=== PATIENT | female | born 1995 | race Caucasian/White ===

== ENCOUNTER 2024-08-13 13:55 | Outpatient (CLI) | payer OTHER, SELFPAY ==
--- NOTE | ~2024-08-13 | US_ITS ---
US pelvic complete w TV Ordering provider: Andrea Wetzel, [employer] History: . PELVIC PAIN . Comparison: None. Technique: Transabdominal and endovaginal ultrasound of the pelvis (Doppler ultrasound interrogation techniques used as needed for this exam.) FINDINGS: CERVIX: Normal. UTERUS: Measures 7.7 x4.7 x3.8. cm in length which is within normal limits and is anteverted. No bhavani metrial masses. IUD is seen in the endometrial cavity. ENDOMETRIUM: Normal in thickness measuring 6.5 mm. (Note: the premenopausal endometrium may measure u p to 16 mm when in the secretory phase.) No endometrial masses, cysts or fluid. CUL DE SAC: No free fluid. RIGHT OVARY: Normal in size measuring 3.2 x 2.7 x 2.3 cm. Normal echotexture. Doppler vascular flow p resent. LEFT OVARY: Normal in size measuring 2 x 2.4 x 2.8 cm. Normal echotexture. Doppler vascular flow pres ent. ADNEXA: Normal. No mass. IMPRESSION: normal pelvic ultrasound. Reviewed, dictated and finalized at location A. IMPRESSION: normal pelvic ultrasound.
--- OUTSIDE RECORDS SUMMARY | 2024-08-13 14:18 | XMS_ITS | Clinical Summary ---
Author Organization [facility] Address [address] [place] [id number] Care Team Providers Care Stitchdowns Toe Former Name Role Phone Xavi Redding MD Primary Care Provider [phone] Allergies Active Allergy Reactions Criticality Noted Date Comments Sulfamethoxazole-Trimethoprim Hives Low 2019 Codeine Hives High 06/02/2021 Gabapentin Hives High 08/20/2019 Sulfa Antibiotics Hives Low 08/20/2019 Medications vitamin D3, cholecalciferol, 10 mcg tablet Take 1 tablet (10 mcg total) by mouth daily. Active Active Problems Problem Noted Date Diagnosed Date Dichorionic diamniotic twin gestation (HHS/HCC) 10/11/2023 ([facility]) 07/31/2023 Family History Medical History Relation Comments Diabetes Father Heart Disease Mother Thyroid Disease Mother Relation Status Comments Father Alive Mother Alive Social History Tobacco Use Types Packs/Day Years Used Date Smoking Tobacco: Former Cigarettes Smokeless Tobacco: Never Tobacco Cessation:Counseling Given: Not Answered Alcohol Use Standard Drinks/Week Comments Not Currently 0 (1 standard drink = 0.6 oz pur e alcohol) B1300 Health Literacy Answer Date Recor ded How often do you need to hav e someone help you when you read instructions, pamphlets, or other written material from your doctor or pharmacy? Never 10/11/2023 [facility] Utilities Answer Date Recorded In the past 12 months has th e electric, gas, oil, or water company threatened to shut off services in your home? No 10/11/2023 Humiliation, Afraid, Rape, and Kick questionnair e Answer Date Recorded Within the last year, have y ou been afraid of your partner or ex-partner? No 10/11/2023 Within the last year, have y ou been humiliated or emotionally abused in other ways by your partner or ex-partner? No Within the last year, have y ou been kicked, hit, slapped, or otherwise physically hurt by your partner or ex-partner? No 10/11/2023 Within the last year, have y ou been raped or forced to have any kind of sexual activity by your partner or ex-partner? No 10/11/2023 Social Connection and Isolat ion Panel [NHANES] Answer Date Recorded In a typical week, how many times do you talk on the phone with family, friends, or neighbors? More than three times a week 10/11/2023 How often do you get togethe r with friends or relatives? More than three times a week 10/11/2023 How often do you attend chur or cheondoism services? Never 10/11/2023 Do you belong to any clubs o r organizations such as advent groups, unions, fraternal or athletic groups, or school groups? No 10/11/2023 How often do you attend meet ings of the clubs or organizations you belong to? Never 10/11/2023 Are you , , di vorced, , never , or living with a partner? Living with partner 10/11/2023 Overall Financial Resource Strain (CARDIA) Answe r Date Recorded How hard is it for you to pa y for the very basics like food, housing, medical care, and heating? Not hard at all 10/11/2023 PHQ-2 Answer Date Recorded Patient Health Questionnaire-2 Score 0 10/11/2023 [facility] - Occupational Stress Questionnaire Answer Date Recorded Do you feel stress - tense, restless, nervous, or anxious, or unable to sleep at night because your mind is troubled all the time - these days? Not at all 10/11/2023 Hunger Vital Sign Answer Date Recorded Within the past 12 months, y ou worried that your food would run out before you got the money to buy more. Never true 10/11/19 24 Within the past 12 months, t he food you bought just didn't last and you didn't have money to get more. Never true 10/11/2023 PRAPARE - Transportation Answer Date Re corded In the past 12 months, has l ack of transportation kept you from medical appointments or from getting medications? No 09/15 In the past 12 months, has l ack of transportation kept you from meetings, work, or from getting things needed for daily living? No 10/11/2023 Housing Stability Vital Sign Answer Darryn e Recorded In the last 12 months, was t here a time when you were not able to pay the mortgage or rent on time? No 10/11/2023 In the past 12 months, how m any times have you moved where you were living? 1 10/11/2023 At any time in the past 12 m [facility], were you homeless or living in a assisted (including now)? No 10/11/2023 Depression Answer Date Recor ded Last EPDS Total Score 1 10/13/2023 Last EPDS Self Harm Result Hardly ever 10/12 Comments No Sex and Gender Information Value Date Recorded Sex Assigned at Female 09/19/2023 3:04 PM CDT Legal Sex Female 10:59 PM ADOPTION AGENT Gender Identity Female 09/19/2023 3:04 PM CDT Sexual Orientation Not on file Last Filed Vital Signs Vital Sign Reading Time Taken Comments Blood Pressure 130/76 10/14/2023 3:53 AM CDT Pulse 55 10/14/2023 3:53 AM CDT Temperature 35.8 C (96.4 F) 10/14/2023 3:53 AM CDT Respiratory Rate 18 10/13/2023 8:26 PM CDT Oxygen Saturation 96% 10/14/2023 3:53 AM CDT Inhaled Oxygen Concentration - - Weight 95.3 kg (210 lb) 10/11/2023 3:00 PM CDT Height 177.8 cm (5' 10) 10/11/2023 3:00 PM CDT Body Mass Index 30.13 10/11/2023 3:00 PM CDT Plan of Treatment Health Maintenance Due Date Last Done Comments Cervical Cancer Screening Pap Smear (Age 21 to 29) Every 3 Years 1996 Cervical Cancer Screening 1996 Annual Physical 06/04/1999 COVID-19 Vaccine (2023- season) 2023 DTaP, Tdap and Td Vaccines (8 - Td or Tdap) 09/01/2033 09/02/2023, 06/25/2010, 09/11/2001, Additional history exists Hepatitis B Vaccines Completed 03/09/1999, 1996, 1996 Meningococcal Vaccine Aged Out 06/25/2010 No isidoro leonor eligible based on patient's age to complete this topic HPV Vaccines Completed 09/04/2011, 11/14, 10/03/2010 Hepatitis C Completed 03/28/2023 Meningococcal B Vaccine Aged Out No l onger eligible based on patient's age to complete this topic Pneumococcal Vaccine: Pediatrics (0 to 5 Years) and At-Risk Patients (6 to 49 Years) Aged Out No longer eligible based on patient's age to complete this topic RSV Immunizations Under 20 Months Aged Out No longer eligible based on patient's age to complete this topic Procedures Procedure Name Priority Date/Time Associated Diagnosis Comments HEPATITIS C ANTIBODY Routine 03/28/2023 from Last 3 Months or Most Recently Relevant to Health Maintenance Results * HEPATITIS C ANTIBODY (03/28/2023) HEPATITIS C AB Negative us Default History Genericprovider LABORATORY Final Result from Last 3 Months or Most Recently Relevant to Health Maintenance Insurance [employer] Advance Directives * Full Code (Latest Code Status on File) Date Activated Date Inactivated Comments 10/11/2023 5:30 PM 10/14/2023 3:02 PM Care Teams Stitchdowns Toe Former Relationship Specialty Start Date End Date Xavi Redding MD [address] [place] [phone] PCP - General FAMILY PRACTICE 04/18/20
--- OUTSIDE RECORDS SUMMARY | 2024-08-13 14:18 | XMS_ITS | Continuity of Care Document ---
Author Organization [facility] Address [address] [place] [address] Phone Care Team Providers Care Vocational Teacher Name Role Phone Jake Temitope JANG Unavailable Unavailable Allergies, Adverse Reactions, Alerts Substance Reaction Status Criticality trimethoprim Active No Information sulfamethoxazole Active No Informat ion codeine rash, fever(moderate) Active No Inf ormation Sulfa (Sulfonamide Antibiotics) Active No Information Medications Medication Instructions Dosage Effective Dates (start - stop) Status Comments Vitamin D3 25 mcg (1,000 unit) tablet - Active Augmentin 875 mg-125 mg tablet take 1 tablet by oral route every 12 hours - No Longer Active Depo-Provera 150 mg/mL intramuscular suspension inject 1 milliliter by intramuscular route every 3 months 150 MG - No Longer Active bupropion HCl 100 mg tablet take 1 tablet by oral route 2 times every day 100 MG - No Longer Active fludrocortisone 0.1 mg tablet take 2 tablet by oral route every day 0.2 MG - No Longer Active Procedures Procedure Date OFFICE/OUTPATIENT VISIT, EST IMMUNOTHERAPY, ONE INJECTION OFFICE/OUTPATIENT VISIT, EST OFFICE/OUTPATIENT VISIT, EST OFFICE/OUTPATIENT VISIT, EST OFFICE/OUTPATIENT VISIT, EST URINALYSIS NONAUTO W/O SCOPE OFFICE/OUTPATIENT VISIT, EST OFFICE/OUTPATIENT VISIT, EST Advance Directives Directive Yes / No Effective Date File Name No Information Encounters Encounter Description Practice Location Reason(s) For Visit Diagnoses Date Provider Providers Copied on Encounter [facility], [address] [place] [address], [facility], tel:[phone] Yuliya No Information 1 Jake Linn. [address] [place] [address]. tel:[phone] OFFICE/OUTPA TIENT VISIT, [facility], [address] [place] [address], [address] [place] [address] tel:[phone] [place] UTI (chief complaint) DysuriaInterst itial cystitis without hematuria 1 Wen Sung. [address] [place] [address], [address] [place] [address]. tel:[phone] [facility], [address] [place] [address] tel:[phone] Yuliya INJECTION (chief complaint) Encounter for surveillance of contraceptives , unspecified 9 Vinod Mullins. [address] [place] [address]. tel:[phone] OFFICE/OUTPA TIENT VISIT, [facility], [address] [place] [address], [facility], tel:[phone] Yuliya SORE THROAT (chief complaint) Pharyngitis 8 Toni Garcia. [address] [place] [address], [facility], . tel:[phone] OFFICE/OUTPA TIENT VISIT, [facility], [address] [place] [address], [facility], tel:[phone] Yuliya Sore throat (chief complaint) Upper respiratory infection 8 Bartolo Lui. [address] [place] [address], [address] [place] [address]. tel:[phone] OFFICE/OUTPA TIENT VISIT, [facility], [address] [place] [address], [facility], tel:[phone] [place] CYST R EAR (chief complaint) Cellulitis of right ear 7 Dee Abbott. [address] [place], [address], [place]. tel:[phone] OFFICE/OUTPA TIENT VISIT, [facility], [address] [place] [address], [facility], tel:[phone] [place] SORE THROAT (chief complaint) Acute maxillary sinusitis, unspecified 6 Longmeyer Brittany. [address] [place] [address], [place]. tel:[phone] OFFICE/OUTPA TIENT VISIT, [facility], [address] [place] [address], [facility], tel:[phone] [place] UTI (chief complaint) Heartburn (chief complaint) Infection, urinary tract NOSGERD 4 Bartolo Snaia. [address] [place] [address], [facility], . tel:[phone] OFFICE/OUTPA TIENT VISIT, [facility], [address] [place] [address], [facility], tel:[phone] [place] rash (chief complaint) Rash No Information Family History Family Member Type Diagnosis Age At Onset Father Problem (finding) diabetes melli tus in first degree relative Payers Payer name Insurance type Covered republican ID Authoriza tion(s) No Information Social History Type Description Quantity Date Captured Comments Alcohol Use Details Unknown Caffeine Use Details Unknown Tobacco Use Status No Information Smoking Status No Information Sex Female Chief Complaint And Reason For Visit No Information Reason For Referral Reason For Referral No Information Plan Of Treatment Date Type Action Status Goal HPV (1st). Due on due Goal Td vaccine. Due on due Goal PAP. Due on due Goal Tdap. Due on due Goal Influenza vaccine. Due on due Goal Depression scree akash. Due on due Goal Influenza vaccine. Due on No due Goal Depression scree akash. Due on due Goal Td vaccine. Due on 21 due Goal HPV (). Due on due Goal Tdap. Due on due Goal PAP. Due on due Goal HPV (). Due on 9 due Goal Td vaccine. Due on 19 due Goal Influenza vaccine. Due on due Goal Depression scree akash. Due on due Goal Tdap. Due on due Goal PAP. Due on due Goal Depression scree akash. Due on due Goal Influenza vaccine. Due on due Goal Td vaccine. Due on 18 due Goal HPV (1st). Due on 8 due Goal Tdap. Due on due Goal PAP. Due on due Goal Depression scree akash. Due on due Goal Influenza vaccine. Due on due Goal Td vaccine. Due on 18 due Goal HPV (1st). Due on 8 due Goal Tdap. Due on due Goal PAP. Due on due Patient Education Interstitial Cystitis IC PBS Me~ completed Future Order: Lab Order HCG URIN E ([id number]), Ordered on: Ordered Future Order: Lab Order URINALYS IS WITH REFLEX CULTURE ([id number]), Ordered on: Ordered History Of Present Illness Encounter Date Complaint History Of Prese nt Illness UTI Onset: 2 Days. P resenting/Initial symptoms include dysuria, frequency, lower back pain and urgency. Associated symptoms include dysuria, frequency, hesitancy, pressure and urgency. Pertinent negatives include abdominal pain, fatigue, fever, flank pain, hematuria, nausea, nocturia, pelvic pain, rash, retention, vaginal discharge or vomiting. UTI (comments) Patient has a hi story of interstitial cystitis and has been off of her medications for over a year, trying to conceive. She denies the possibility of STI. Denies hematuria today. She has not followed up with her urologist in over a year. PCP Dr. Redding. She receives routine manager print care. INJECTION PT PRESENTS FOR DEPO CONTROL INJECTION - INJECITON GIVEN IN LEFT BUTTOCKS WITHOUT INCIDENT OR COMPLAINT . PT IS ON SCHEDULE SORE THROAT Onset: 2 Days. T he severity of the problem is mild. The problem has worsened. Symptoms are associated with exposure to strep and recent cold. Symptoms are not associated with dental infection, history of allergies, history of asthma, recent travel, sick family member and smoker. Associated symptoms include chills/rigors, cough, fatigue, nasal congestion, pharyngitis, postnasal drainage and sinus pressure. Pertinent negatives include dyspnea, facial pain, fever, headache, hemoptysis, myalgia, otalgia, rash, rhinitis, sputum, tooth pain or wheezing. Sore throat Onset: 3 Days. S ymptoms are associated with history of allergies. Symptoms are not associated with sick family member. The patient denies aggravating factors. The patient denies relieving factors. Associated symptoms include dyspnea, fatigue, fever, nasal congestion, postnasal drainage, sinus pressure and wheezing. Pertinent negatives include chills/rigors. Additional information: PT states that her max fever was 99F. PT states she took 4 Tylenol today at about 7AM. CYST R EAR Pt presents toda y with c/o right ear pain, swelling, draniage, and bleeding. She had it pierced on 06/03/16 and appx 1 week ago it became infected. She has removed the ring. SORE THROAT Onset: 10 Days. The severity of the problem is moderate. The problem has worsened. The symptoms are persistent. Symptoms are associated with history of allergies and history of asthma. Symptoms are not associated with exposure to strep, sick family member and smoker. The patient denies aggravating factors. The patient denies relieving factors. Associated symptoms include cough (productive with green sputum), fatigue, fever, nasal congestion, otalgia, pharyngitis, postnasal drainage and sinus pressure. Pertinent negatives include chills/rigors, headache, myalgia, rash or tooth pain. UTI Onset: 1 Week. P resenting/Initial symptoms include abdominal pain, frequency and lower back pain. Aggravating factors include urination. Symptoms are not aggravated by baths or sexual activity. Denies relieving factors. Associated symptoms include dysuria and frequency. Pertinent negatives include fatigue, fever, nausea, rash, vaginal discharge or vomiting. Heartburn Onset: 6 Months. The severity of the problem is moderate. The problem has not changed. The symptoms are recurring. The location is epigastric. The quality of the pain is burning. These symptoms occur NSAID use. Symptoms are relieved by OTC meds. Associated symptoms include back pain and heartburn. Pertinent negatives include bloating, blood in stool, fever, nausea, rash, vaginal discharge and vomiting.Additional information:Chronic, off and on. While on Nexium (14 days) went away but came right back). rash The patient pres ents for rash. This episode began 10 days ago and has lasted 10 Days. The symptom(s) are described as moderate, unchanged and occurs continuously. Additional information: Patient has had the rash for about 10 days and complains of tit itching and feels very hot to touch. It gets better and then gets worse again. Functional Status Date Functional Assessmen t No Information Instructions Date Instruction Additional Infor chante Your urine will be s ent to the lab for further analysis. We will call your with the results. If you have no infection, it is strongly recommended that you follow-up with your urologist for further recommendations on treatment. In the meantime, drink plenty of fluids and take tylenol or ibuprofen for temporary relief of your symptoms. Follow-up at this office or with your primary care provider for continued or worsening symptoms. Related to Dysuria Observe for worsening s/s Relate d to Pharyngitis Discard toothbrush in 2 days Rel ated to Pharyngitis Tylenol/ Motrin as n eeded for fever/discomfort Related to Pharyngitis Medications as discussed Related to Pharyngitis Recommend gargling Related to Ph aryngitis Over the counter med ication for symptoms, Mucinex DM for cough and mucous, Throat lozenges for sore throat symptomsTylenol for headache or bodyaches Related to Upper respiratory infection Increase fluids. Related to Uppe r respiratory infection Cover cough. Good hand hygiene. Related to Upper respiratory infection Educated that antibi otics are not prescribed for viral infections. Related to Upper respiratory infection Wash area with warm, soapy water BID. Related to Cellulitis of right ear Call office with any acute shakira rns. Related to Cellulitis of right ear Observe for worsening s/s. Relat ed to Cellulitis of right ear Take medication as directed. Rel ated to Cellulitis of right ear Patient instructed o n use of saline sprays. Related to Acute maxillary sinusitis, unspecified Instructions given f or sinus irrigation. Related to Acute maxillary sinusitis, unspecified After finished with antibiotic start Ranitidine 75mg BID can increase to 150mg BID if not helping after 1 weekUse for 3-4 weeks then try to go off of itTry not to use NSAIDs and take with food if you need to take itFollow up in 4-6 weeks if no improvement Related to GERD Finish all antibiotics Related t o Infection, urinary tract NOS Increase fluids, jennifer ecially water, avoid sugary drinks Related to Infection, urinary tract NOS Elevate head of bed prior to sle ep Related to GERD Eat smaller meals, n o eating three hours prior to bedtime Related to GERD Avoid provocative fo ods: citrus, alcohol, coffee, chocolate, mints Related to GERD avoid florentin silver jewelry Re lated to Rash Zyrtec OTC Related to Rash Cortisone cream Related to Rash Assessments Type Assessment Date No Information Patient Care Teams Name Effective Dates (start - stop) Status Members No Information
--- OUTSIDE RECORDS SUMMARY | 2024-08-13 14:19 | XMS_ITS | Data Portability ---
Author Organization [facility], [address] [facility] ([place]) Address [address] 4th [place] [address] Care Team Providers Care Engraving Plate Maker Name Role Phone BRANDON UNGER Primary Care Provider PHILLIP ANTON Insulation Worker DORIS WATKINS Hand Brush Filler Assessment Encounter Date Assessment Date Assessment LastModified by Organization Details LastModified Time 10/21/2023 10/21/2023 Blood pressures are normal. The patient is overall doing well at home. She is taking Colace, vitamin and vitamin D. Bleeding precautions were given. The patient is aware that she can use as a support for her needs with pumping for the twins. She will continue to monitor her blood pressures at home and will return for her scheduled visit. Her EPDS was 6. [email or web address] Not available 11/01/2023 10:50:39 Plan of Treatment Reminders Order Date Submit Date Provider Last Modified By Organization Details Last Modified Time Details Appointments Establish ed Patient 10.EST 2024 09:00A M Dr. Phillip Anton Not available Not available Not available Annual Well Woman Visit 15.EST 2024 01:00P M Dr. Doris Watkins Not available Not available Not available Lab urinalysi s, dipstick 2023 024 [id number] [address] [facility] [address], [place], [address], 10/13/2023 10:05:55 urinalysi s, dipstick 2023 024 [id number] [facility] [address], [place], [address], 10/07/2023 18:01:12 Referral None recorded. Procedures None recorded. Surgeries None recorded. Imaging US, obstetric , biophysic al profile 2023 024 [facility], [address] [place] [address], [id number], 10/13/2023 10:05:55 US, obstetric , limited 2023 024 [email or web address] [facility], [address] [place] [address], [id number], 10/13/2023 10:05:55 Medication Orders norethind caitlin (contrace ptive) 0.35 mg tablet 2023 024 [email or web address] [facility], [address] [facility] [place] [address], [place], [address], 11/26/2023 18:11:34 Patient TargetsNo targets recorded. Patient InstructionsNo instructions recorded. Reason for Referral None Reported. Results Created Date Observation Date Name Description Value Unit Range Abnormal Flag Note LastModifiedBy Organization Detail LastModifiedTime 09/08/1909/08/2023 urina lysis , dipst ick manual urine dipstick pH value s of 5 or 9 indic ates a value <=5 or >=9. Speci fic gravi ty value of 1.005 indic ates a value of <=1.0 05 Speci fic gravi ty value of 1.030 indic ates a value of >=1.0 30 Not Available [facility] [address] [place] [address], [id number], 09/08/2023 13:13:46 09/08/19 24 09/08/2023 urina lysis , dipst ick color YELLO Not Available [facility] [address] [place] [address], [id number], 09/08/2023 13:13:46 09/08/19 24 09/08/2023 urina lysis , dipst ick appearance CLEAR Not Available [facility] [address] [place] [address], [id number], 09/08/2023 13:13:46 09/08/19 24 09/08/2023 urina lysis , dipst ick sp gravity 1.010 1.005- 1.030 Not Available [facility] [address] [place] [address], [id number], 09/08/2023 13:13:46 09/08/19 24 09/08/2023 urina lysis , dipst ick pH 7.0 5.0-7. 5 Not Available [facility] [address] [place] [address], [id number], 09/08/2023 13:13:46 09/08/19 24 09/08/2023 urina lysis , dipst ick protein NEG negati ve Not Available [facility] [address] [place] [address], [id number], 09/08/2023 13:13:46 09/08/19 24 09/08/2023 urina lysis , dipst ick glucose NEG negati ve Not Available [facility] [address] [place] [address], [id number], 09/08/2023 13:13:46 09/08/19 24 09/08/2023 urina lysis , dipst ick ketone NEG negati ve Not Available [facility] [address] [place] [address], [id number], 09/08/2023 13:13:46 09/08/19 24 09/08/2023 urina lysis , dipst ick bilirub NEG negati ve Not Available [facility] [address] [place] [address], [address], 09/08/2023 13:13:46 09/08/19 24 09/08/2023 urina lysis , dipst ick blood 2+ negati ve abnormal Not Available [facility] [address] [place] [address], [address], 09/08/2023 13:13:46 09/08/19 24 09/08/2023 urina lysis , dipst ick urobil NEG <=1.0 Not Available [facility] [address] [place] [address], [address], 09/08/2023 13:13:46 09/08/19 24 09/08/2023 urina lysis , dipst ick nitrite NEG negati ve Not Available [facility] [address] [place] [address], [id number], 09/08/2023 13:13:46 09/08/19 24 09/08/2023 urina lysis , dipst ick leuk 3+ negati ve abnormal Not Available [facility] [address] [place] [address], [id number], 09/08/2023 13:13:46 09/08/19 24 09/10/2023 cultu re + sensi tivit y, urine urine culture and sens. LOREN L URINE ESCHE JUDSON A COLI DATE/ TIME: 09/09 10:04 >100, 000 CFU/m L Antib iotic Name EARLENE mcg/m l Ampic illin <=8 S Amoxi cilli n/K Clavu lanat e <=8/4 S Cefaz fang <=2 S Cipro floxa anh <=1 S Cefur oxime <=4 S Nitro furan toin <=32 S Trime thopr im/Cameron lfmet hoxaz <=2/3 8 S S=Jewels cepti ble R=Res istan t I=Int ermed iate IB=Sp ecies poten tiall y may becom e resis tant to all B-lac farris drugs . Patie nt monit oring recom lazara d. Avoid other /comb ined B-lac farris drugs . ESB=E xtend ed spect rum Beta- lacta jai (ESBL ) R*=Pr edict ed resis tant inter preta tion Not Available [facility] [address] [place] [address], [id number], 09/10/2023 11:05:23 09/08/19 24 09/09/2023 cultu re + sensi tivit y, urine urine culture and sens. PREL IM URINE GRAM NEGAT NINI RODS DATE/ TIME: 09/08 08:59 >100, 000 CFU/m L Not Available [facility] [address], [address], 09/09/2023 10:00:34 09/13/19 24 09/13/2023 urina lysis , dipst ick Protein Negati ve Not Available [address] [facility] [facility] [address] [place] [address], [phone], 09/12/2023 16:26:03 09/13/19 24 09/13/2023 urina lysis , dipst ick Glucose Negati ve Not Available [address] [facility] [address] [place] [address], [address], 09/12/2023 16:26:03 09/16/19 24 09/16/2023 urina lysis , dipst ick Protein Trace Not Available [address] master assistant ([place] [address] [place] [address], [address], 09/16/2023 17:17:16 09/16/19 24 09/16/2023 urina lysis , dipst ick Glucose Negati ve Not Available [address] [facility] [address] [place] [address], [address], 09/16/2023 17:17:16 09/21/19 24 09/21/2023 urina lysis , dipst ick Protein Trace Not Available [address] [facility] [address] [facility] [address] [place] [address] 2, [place], [address], 09/21/2023 13:17:24 09/21/19 24 09/21/2023 urina lysis , dipst ick Glucose Negati ve Not Available [address] [facility] [facility] [address] [place] [address] 2, [place], [address], 09/21/2023 13:17:24 09/23/19 24 09/24/2023 prote in, total , 24-ho ur urine total protein, 24 HR ur Not Available [facility] [address] [place] [address], [id number], 09/24/2023 09:39:37 09/23/19 24 09/24/2023 prote in, total , 24-ho ur urine creatinine, 24 hour urine 1324 mg/24 _HR 800-18 00 Not Available [facility] [address] [place] [address], [id number], 09/24/2023 09:39:37 09/23/19 24 09/24/2023 prote in, total , 24-ho ur urine protein/crea tinine ratio 191 0-200 Not Available [facility] [address] [place] [address], [address], 09/24/2023 09:39:37 09/23/19 24 09/24/2023 prote in, total , 24-ho ur urine protein, total 24 HR ur. 253 mg/24 _HR 30-150 high Not Available [facility] [address] [place] [address], [address], 09/24/2023 09:39:37 09/23/19 24 09/24/2023 creat incathy padilla creatinine, random urine 31.9 mg/dL not estab. Not Available [facility] [address] [place] [address], [address], 09/24/2023 12:00:19 09/23/19 24 09/24/2023 prote in, tot;r andom protein, tot;random 6.1 mg/dL not estab. Not Available [facility] [address] [place] [address], [address], 09/24/2023 12:00:20 09/28/19 24 09/28/2023 urina lysis , dipst ick Protein Negati ve Not Available [address] [facility] [address] [place] [address], [address], 09/28/2023 09:03:13 09/28/19 24 09/28/2023 urina lysis , dipst ick Glucose Negati ve Not Available [address] [facility] [facility] [address] [place] [address], [place], [address], 09/28/2023 09:03:13 09/28/19 24 09/28/2023 urina lysis , dipst ick Nitrate Negati ve Not Available [address] [facility] [address] [place] [address], [place], [address], 09/28/2023 09:03:13 09/28/19 24 09/28/2023 urina lysis , dipst ick Leukocyte Negati ve Not Available [address] [facility] [address] [place] [address], [address], 09/28/2023 09:03:13 09/30/19 24 10/01/2023 strep tococ cus agala ctiae DNA, QL, GUIDO+p robe, vag+r ectum group B strep; DNA probe POSITI VE negati ve abnormal Posit nini for Group B Strep tococ ci (S. agala ctiae ). Testi ng perfo rmed using PCR after CHAPARRO broth enric hment . A posit nini resul t does not autom atica lly confi rm the prese nce of viabl e organ isms, and its inter preta tion shoul d consi makenna the relev ant clini osmar abdiaziz xt. If Micro biolo gy was notif ied of a Penic illin aller gy when GBS testi ng was order ed, susce ptibi lity testi ng for Clind amyci n will be autom atica lly perfo rmed. See GBS cultu re repor t. If a patie nt is Penic illin -perry rgic but not at high risk, Cefaz fang is the drug of choic e to preve nt neona anoop Group B Strep tococ cosis . Due to the predi ctabl e susce ptibi lity of Group B Strep tococ cus to Cefaz fang, routi ne testi ng is unnec essar y. (Morb idity and Morta lity Weekl y Repor t, Novem 2009/ Vol.5 1/No. RR-11 ) Not Available [facility] [address] [place] [address], [address], 10/01/2023 14:40:10 09/30/19 24 09/30/2023 urina lysis , dipst ick Protein Negati ve Not Available [address] [facility] [facility] [address] [place] [address], [address], 09/30/2023 11:54:06 09/30/19 24 09/30/2023 urina lysis , dipst ick Glucose Negati ve Not Available [address] [facility] [address] [place] [address], [address], 09/30/2023 11:54:06 10/07/19 24 10/07/2023 urina lysis , dipst ick Protein Trace Not Available [address] ([place]) [address] [place] [address], [address], 10/05/2023 14:19:51 10/07/19 24 10/07/2023 urina lysis , dipst ick Glucose Negati ve Not Available [address] [facility] [facility] [address] [place] [address], [address], 10/05/2023 14:19:51 10/11/19 24 10/11/2023 urina lysis , dipst ick Protein Negati ve Not Available [address] [facility] ([facility]) [address] [place] [address], [address], 10/10/2023 16:36:02 10/11/19 24 10/11/2023 urina lysis , dipst ick Glucose Negati ve Not Available [address] [facility] ([facility]) [address] [place] [address] 2, [place], [address], 10/10/2023 16:36:02 09/05/19 24 09/02/2023 , ciriloe tric, limit ed [address] [address] Teleph one [phone] Name: CARLYLE ADKINS [facility] [id number] Exam Date: 2023 Age: 28 Physic marah: MD SARAH, DORIS : 1995 Examin ation: US OB LIMITE D Indica tion: Sonogr am for FHT- Di -Di Twins . Transa bdomin al ultras ound is perfor med. Previo usly dated 30.6 Di-Di Twins EDC 024. A: Cephal ic. FHT 150 bpm. MVP 4.57 cm B: Cephal ic. FHT 146 bmp. MVP 4.88 cm Impres rahul: 30.6 EDC 024. Cephal ic/Cep halic. Anteri or/Pos terior placen ta. Normal MVPs and FHR. Electr onical ly signed in Floyd cribe by: Doris Beltre MD on:08/15 8:28 PM cc: Page PAGE 1 of [facility] ES 1 INTERFACE [facility] [address] [place] [address], [id number], 09/05/2023 21:31:34 09/22/19 24 09/16/2023 , tarsha tric, limit ed [facility] [address] [place], [place] [id number] Teleph [facility] Name: CARLYLE ADKINS [id number] Exam Date: 2023 Age: 28 Physic marah: MD SARAH, DORIS : 1995 Examin ation: US OB LIMITE D, US OB BIOPHY S PROFIL E WO STRESS , MULTIP LE INDICA TIONS: Antena anoop testin g for survei llance of well-b eing in twin gestat ion. [facility] al age at the time of study is 32.6 based on EDC of 024. FINDIN GS: Ultras ound was perfor med transa bdomin ally. Ultras ound reveal s a viable dichor ionic twin intrau terine gestat ion. Fetus A cardia c activi ty is confir med at 142 (bpm). Active moveme nt is noted throug hout the course of the exam. The fetus is in cephal ic presen tation . The maximu m vertic al pocket of amniot ic fluid measur es 2.87 cm. The placen ta is locate d anteri or. It is mid positi on. Biophy sical profil e is perfor med: tone 2, breath ing 2, moveme nts 2, amniot ic fluid 2. This provid es an overal l score of 8 out of 8. Fetus B cardia c activi ty is confir med at 135 (bpm). Active moveme nt is noted throug hout the course of the exam. The fetus is in cephal ic presen tation . The maximu m vertic al pocket of amniot ic fluid measur es 5.71 cm. The placen ta is locate d sales and events coordinator ior . Biophy sical profil e is perfor med: tone 2, breath ing 2, moveme nts 2, amniot ic fluid 2. This provid es an overal l score of 8 out of 8. IMPRES RAHUL: 1. Viable dichor ionic twin intrau terine gestat ion in cephal ic/cep halic presen tation . 2. Amniot ic fluid index is within normal limits on both babies . 3. Biophy sical profil e is 8/8 for twin A and 8/8 for twin B. Electr onical ly signed in Floyd cribe by: Doris Beltre MD on:09/21 7:36 PM cc: Page PAGE 1 of [facility] ES 1 INTERFACE [facility] [address] , [place], [address], 09/22/2023 20:39:22 09/22/19 24 09/16/2023 US, obste tric, bioph ysica l profi le [facility] [address] [place] [address] Teleph one Name: CARLYLE ADKINS [facility] [id number] Exam Date: 2023 Age: 28 Physic marah: MD SARAH, DORIS : 1995 Examin ation: US OB LIMITE D, US OB BIOPHY S PROFIL E WO STRESS , MULTIP LE INDICA TIONS: Antena anoop testin g for survei llance of well-b eing in twin gestat ion. [facility] Clinic al age at the time of study is 32.6 based on EDC of 024. FINDIN GS: Ultras ound was perfor med transa bdomin ally. Ultras ound reveal s a viable dichor ionic twin intrau terine gestat ion. Fetus A cardia c activi ty is confir med at 142 (bpm). Active moveme nt is noted throug hout the course of the exam. The fetus is in cephal ic presen tation . The maximu m vertic al pocket of amniot ic fluid measur es 2.87 cm. The placen ta is locate d anteri or. It is mid positi on. Biophy sical profil e is perfor med: tone 2, breath ing 2, moveme nts 2, amniot ic fluid 2. This provid es an overal l score of 8 out of 8. Fetus B cardia c activi ty is confir med at 135 (bpm). Active moveme nt is noted throug hout the course of the exam. The fetus is in cephal ic presen tation . The maximu m vertic al pocket of amniot ic fluid measur es 5.71 cm. The placen ta is locate d sales and events coordinator ior . Biophy sical profil e is perfor med: tone 2, breath ing 2, moveme nts 2, amniot ic fluid 2. This provid es an overal l score of 8 out of 8. IMPRES RAHUL: 1. Viable dichor ionic twin intrau terine gestat ion in cephal ic/cep halic presen tation . 2. Amniot ic fluid index is within normal limits on both babies . 3. Biophy sical profil e is 8/8 for twin A and 8/8 for twin B. Electr onical ly signed in Floyd cribe by: Doris Beltre MD on:09/21 7:36 PM cc: Page PAGE 1 of [facility] ES 1 INTERFACE [facility] [address] [place] [address], [id number], 09/22/2023 20:39:24 09/22/19 24 09/16/2023 US, obste tric, bioph ysica l profi [place] [phone] Teleph one Name: CARLYLE ADKINS [facility] [id number] Exam Date: 2023 Age: 28 Physic marah: MD SARAH, DORIS : 1995 Examin ation: US OB LIMITE D, US OB BIOPHY S PROFIL E WO STRESS , MULTIP LE INDICA TIONS: Antena anoop testin g for survei llance of well-b eing in twin gestat ion. [facility] Clinic al age at the time of study is 32.6 based on EDC of 024. FINDIN GS: Ultras ound was perfor med transa bdomin ally. Ultras ound reveal s a viable dichor ionic twin intrau terine gestat ion. Fetus A cardia c activi ty is confir med at 142 (bpm). Active moveme nt is noted throug hout the course of the exam. The fetus is in cephal ic presen tation . The maximu m vertic al pocket of amniot ic fluid measur es 2.87 cm. The placen ta is locate d anteri or. It is mid positi on. Biophy sical profil e is perfor med: tone 2, breath ing 2, moveme nts 2, amniot ic fluid 2. This provid es an overal l score of 8 out of 8. Fetus B cardia c activi ty is confir med at 135 (bpm). Active moveme nt is noted throug hout the course of the exam. The fetus is in cephal ic presen tation . The maximu m vertic al pocket of amniot ic fluid measur es 5.71 cm. The placen ta is locate d sales and events coordinator ior . Biophy sical profil e is perfor med: tone 2, breath ing 2, moveme nts 2, amniot ic fluid 2. This provid es an overal l score of 8 out of 8. IMPRES RAHUL: 1. Viable dichor ionic twin intrau terine gestat ion in cephal ic/cep halic presen tation . 2. Amniot ic fluid index is within normal limits on both babies . 3. Biophy sical profil e is 8/8 for twin A and 8/8 for twin B. Electr onical ly signed in Floyd cribe by: Doris Beltre MD on:09/21 7:36 PM cc: Page PAGE 1 of [facility] ES 1 INTERFACE [facility] [address] [place], [address], 09/22/2023 20:39:26 09/23/19 24 09/23/2023 US, obste tric, trans abdom inal No observ ation record ed. [email or web address] [facility] [place] [address] [place], [address], 10/28/2023 04:07:15 10/04/19 24 09/28/2023 US, obste tric, bioph ysica l profi [facility] [address] [address] Teleph one Name: CARLYLE ADKINS [facility] [id number] Exam Date: 2023 Age: 28 Physic marah: MD KT, TIFFANY : 1995 Examin ation: US OB LIMITE D, US OB BIOPHY S PROFIL E WO STRESS , MULTIP LE INDICA TIONS: Antena anoop testin g for survei llance of well-b eing in twin gestat ion. Clinic al age at the time of study is 34 weeks 4 days based on EDC of 024. FINDIN GS: Ultras ound was perfor med transa bdomin ally. Ultras ound reveal s a viable dichor ionic twin intrau terine gestat ion. Fetus A cardia c activi ty is confir med at 142 (bpm). Active moveme nt is noted throug hout the course of the exam. The fetus is in cephal ic presen tation on the matern al left. The maximu m vertic al pocket of amniot ic fluid measur es 4.8 cm. The placen ta is locate d anteri or. Biophy sical profil e is perfor med: tone 2, breath ing 2, moveme nts 2, amniot ic fluid 2. This provid es an overal l score of 8 out of 8. Fetus B cardia c activi ty is confir med at 136 (bpm). Active moveme nt is noted throug hout the course of the exam. The fetus is in cephal ic presen tation on the matern al right. The maximu m vertic al pocket of amniot ic fluid measur es 4.7 cm. 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 Biophy sical profil e is perfor med: tone 2, breath ing 2, moveme nts 2, amniot ic fluid 2. This provid es an overal l score of 8 out of 8. IMPRES RAHUL: 1. Viable dichor ionic twin intrau terine gestat ion in cephal ic/cep halic presen tation . 2. Amniot ic fluid index is within normal limits on both babies . 3. Biophy sical profil e is 8/8 for twin A and 8/8 for twin B. Electr onical ly signed in Floyd cribe by: TIFFANY MERAZ MD on:09/15 10:15 PM cc: Page PAGE 1 of [facility] ES 1 INTERFACE [facility] [address], [place], [address], 10/04/2023 23:18:17 10/04/19 24 09/28/2023 US, obste tric, limit ed [facility] [address] [address] Teleph one [phone] Name: CARLYLE ADKINS [facility] [id number] Exam Date: 2023 Age: 28 Physic marah: MD KT, TIFFANY : 1995 Examin ation: US OB LIMITE D, US OB BIOPHY S PROFIL E WO STRESS , MULTIP LE INDICA TIONS: Antena anoop testin g for survei llance of well-b eing in twin gestat ion. Clinic al age at the time of study is 34 weeks 4 days based on EDC of 024. FINDIN GS: Ultras ound was perfor med transa bdomin ally. Ultras ound reveal s a viable dichor ionic twin intrau terine gestat ion. Fetus A cardia c activi ty is confir med at 142 (bpm). Active moveme nt is noted throug hout the course of the exam. The fetus is in cephal ic presen tation on the matern al left. The maximu m vertic al pocket of amniot ic fluid measur es 4.8 cm. The placen ta is locate d anteri or. Biophy sical profil e is perfor med: tone 2, breath ing 2, moveme nts 2, amniot ic fluid 2. This provid es an overal l score of 8 out of 8. Fetus B cardia c activi ty is confir med at 136 (bpm). Active moveme nt is noted throug hout the course of the exam. The fetus is in cephal ic presen tation on the matern al right. The maximu m vertic al pocket of amniot ic fluid measur es 4.7 cm. 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 Biophy sical profil e is perfor med: tone 2, breath ing 2, moveme nts 2, amniot ic fluid 2. This provid es an overal l score of 8 out of 8. IMPRES RAHUL: 1. Viable dichor ionic twin intrau terine gestat ion in cephal ic/cep halic presen tation . 2. Amniot ic fluid index is within normal limits on both babies . 3. Biophy sical profil e is 8/8 for twin A and 8/8 for twin B. Electr onical ly signed in Floyd cribe by: TIFFANY MERAZ MD on:09/15 10:15 PM cc: Page PAGE 1 of [facility] ES 1 INTERFACE [facility] [address] [place] [address], [address], 10/04/2023 23:18:20 10/04/19 24 09/28/2023 US, obste tric, bioph ysica l profi [address] [address] Teleph one [phone] Name: CARLYLE ADKINS [facility] [id number] Exam Date: 2023 Age: 28 Physic marah: MD KT, TIFFANY : 1995 Examin ation: US OB LIMITE D, US OB BIOPHY S PROFIL E WO STRESS , MULTIP LE INDICA TIONS: Antena anoop testin g for survei llance of well-b eing in twin gestat ion. Clinic al age at the time of study is 34 weeks 4 days based on EDC of 024. FINDIN GS: Ultras ound was perfor med transa bdomin ally. Ultras ound reveal s a viable dichor ionic twin intrau terine gestat ion. Fetus A cardia c activi ty is confir med at 142 (bpm). Active moveme nt is noted throug hout the course of the exam. The fetus is in cephal ic presen tation on the matern al left. The maximu m vertic al pocket of amniot ic fluid measur es 4.8 cm. The placen ta is locate d anteri or. Biophy sical profil e is perfor med: tone 2, breath ing 2, moveme nts 2, amniot ic fluid 2. This provid es an overal l score of 8 out of 8. Fetus B cardia c activi ty is confir med at 136 (bpm). Active moveme nt is noted throug hout the course of the exam. The fetus is in cephal ic presen tation on the matern al right. The maximu m vertic al pocket of amniot ic fluid measur es 4.7 cm. 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 Biophy sical profil e is perfor med: tone 2, breath ing 2, moveme nts 2, amniot ic fluid 2. This provid es an overal l score of 8 out of 8. IMPRES RAHUL: 1. Viable dichor ionic twin intrau terine gestat ion in cephal ic/cep halic presen tation . 2. Amniot ic fluid index is within normal limits on both babies . 3. Biophy sical profil e is 8/8 for twin A and 8/8 for twin B. Electr onical ly signed in Floyd cribe by: TIFFANY MERAZ MD on:09/15 10:15 PM cc: Page PAGE 1 of [facility] ES 1 INTERFACE [facility] [address] [place], [address], 10/04/2023 23:18:21 10/09/19 24 10/04/2023 US, obste tric, bioph ysica l profi [address] [address] Teleph one [phone] Name: CARLYLE ADKINS [facility] 0188 Exam Date: 2023 Age: 28 Physic marah: MD SARAH, DORIS : 1995 Examin ation: US OB LIMITE D, US OB BIOPHY S PROFIL E WO STRESS , MULTIP LE INDICA TIONS: Antena anoop testin g for survei llance of well-b eing in Di-Di gestat ion. Clinic al age at the time of study is 35.3 based on EDC of 024. FINDIN GS: Ultras ound was perfor med transa bdomin ally. Ultras ound reveal s a viable dichor ionic twin intrau terine gestat ion. Fetus A cardia c activi ty is confir med at 144 (bpm). Active moveme nt is noted throug hout the course of the exam. The fetus is in cephal ic presen tation . The maximu m vertic al pocket of amniot ic fluid measur es 3.23 cm. The placen ta is locate d anteri or. It is mid positi on. Biophy sical profil e is perfor med: tone 2, breath ing 2, moveme nts 2, amniot ic fluid 2. This provid es an overal l score of 8 out of 8. Fetus B cardia c activi ty is confir med at 136 (bpm). Active moveme nt is noted throug hout the course of the exam. The fetus is in cephal ic presen tation . The maximu m vertic al pocket of amniot ic fluid measur es 3.04 cm. The placen ta is locate d anteri or. Biophy sical profil e is perfor med: tone 2, breath ing 2, moveme nts 2, amniot ic fluid 2. This provid es an overal l score of 8 out of 8. IMPRES RAHUL: 1. Viable dichor ionic twin intrau terine gestat ion in cephal ic presen tation . 2. Amniot ic fluid index is within normal limits on both babies . 3. Biophy sical profil e is 8/8 for twin A and 8/8 for twin B. Electr onical ly signed in Floyd cribe by: Doris Beltre MD on:09/15 9:00 AM cc: Page PAGE 1 of NUMWAG ES 1 INTERFACE Sc Only - [facility] [address] , [place], [address], 10/09/2023 10:03:17 10/09/19 24 10/04/2023 US, obste tric, bioph ysica l profi [facility] [address] [address] [address] Teleph [facility] [phone] Name: JED CARLYEL [facility] [id number] Exam Date: 2023 Age: 28 Physic marah: MD SARAH, DORIS : 1995 Examin ation: US OB LIMITE D, US OB BIOPHY S PROFIL E WO STRESS , MULTIP LE INDICA TIONS: Antena anoop testin g for survei llance of well-b eing in Di-Di gestat ion. Clinic al age at the time of study is 35.3 based on EDC of 024. FINDIN GS: Ultras ound was perfor med transa bdomin ally. Ultras ound reveal s a viable dichor ionic twin intrau terine gestat ion. Fetus A cardia c activi ty is confir med at 144 (bpm). Active moveme nt is noted throug hout the course of the exam. The fetus is in cephal ic presen tation . The maximu m vertic al pocket of amniot ic fluid measur es 3.23 cm. The placen ta is locate d anteri or. It is mid positi on. Biophy sical profil e is perfor med: tone 2, breath ing 2, moveme nts 2, amniot ic fluid 2. This provid es an overal l score of 8 out of 8. Fetus B cardia c activi ty is confir med at 136 (bpm). Active moveme nt is noted throug hout the course of the exam. The fetus is in cephal ic presen tation . The maximu m vertic al pocket of amniot ic fluid measur es 3.04 cm. The placen ta is locate d anteri or. Biophy sical profil e is perfor med: tone 2, breath ing 2, moveme nts 2, amniot ic fluid 2. This provid es an overal l score of 8 out of 8. IMPRES RAHUL: 1. Viable dichor ionic twin intrau terine gestat ion in cephal ic presen tation . 2. Amniot ic fluid index is within normal limits on both babies . 3. Biophy sical profil e is 8/8 for twin A and 8/8 for twin B. Electr onical ly signed in Floyd cribe by: Doris Beltre MD on:09/15 9:00 AM cc: Page PAGE 1 of NUMPAG ES 1 INTERFACE Sc Only - [facility] [address], [place], [address], 10/09/2023 10:03:19 10/09/19 24 10/04/2023 US, obste tric, limit ed [facility] [address] [address] Teleph one Name: CARLYLE ADKINS [facility] [id number] Exam Date: 2023 Age: 28 Physic marah: MD SARAH, DORIS : 1995 Examin ation: US OB LIMITE D, US OB BIOPHY S PROFIL E WO STRESS , MULTIP LE INDICA TIONS: Antena anoop testin g for survei llance of well-b eing in Di-Di gestat ion. Clinic al age at the time of study is 35.3 based on EDC of 024. FINDIN GS: Ultras ound was perfor med transa bdomin ally. Ultras ound reveal s a viable dichor ionic twin intrau terine gestat ion. Fetus A cardia c activi ty is confir med at 144 (bpm). Active moveme nt is noted throug hout the course of the exam. The fetus is in cephal ic presen tation . The maximu m vertic al pocket of amniot ic fluid measur es 3.23 cm. The placen ta is locate d anteri or. It is mid positi on. Biophy sical profil e is perfor med: tone 2, breath ing 2, moveme nts 2, amniot ic fluid 2. This provid es an overal l score of 8 out of 8. Fetus B cardia c activi ty is confir med at 136 (bpm). Active moveme nt is noted throug hout the course of the exam. The fetus is in cephal ic presen tation . The maximu m vertic al pocket of amniot ic fluid measur es 3.04 cm. The placen ta is locate d anteri or. Biophy sical profil e is perfor med: tone 2, breath ing 2, moveme nts 2, amniot ic fluid 2. This provid es an overal l score of 8 out of 8. IMPRES RAHUL: 1. Viable dichor ionic twin intrau terine gestat ion in cephal ic presen tation . 2. Amniot ic fluid index is within normal limits on both babies . 3. Biophy sical profil e is 8/8 for twin A and 8/8 for twin B. Electr onical ly signed in Floyd cribe by: Doris Beltre MD on:09/15 9:00 AM cc: Page PAGE 1 of NUMPAG ES 1 INTERFACE Sc Only - [facility] [address] [place], [address], 10/09/2023 10:03:21 10/11/19 24 10/11/2023 US, obste tric, bioph ysica l profi [address] [address] Teleph one Name: CARLYLE ADKINS [facility] [id number] Exam Date: 2023 Age: 28 Physic marah: MD SARAH, DORIS : 1995 Examin ation: US OB LIMITE D, US OB BIOPHY S PROFIL E WO STRESS , MULTIP LE INDICA TIONS: Antena anoop testin g for survei llance of well-b eing in twin gestat ion. Di-Di Twins. Decrea sed Clinic al age at the time of study is 36.3 based on EDC of 024. FINDIN GS: Ultras ound was perfor med transa bdomin ally. Ultras ound reveal s a viable dichor ionic twin intrau terine gestat ion. Fetus A (mater nal left) cardia c activi ty is confir med at 149 (bpm). Active moveme nt is noted throug hout the course of the exam. The fetus is in cephal ic presen tation . The maximu m vertic al pocket of amniot ic fluid measur es 2.84 cm. The placen ta is locate d anteri or. It is mid positi on. Biophy sical profil e is perfor med: tone 2, breath ing 2, moveme nts 0, amniot ic fluid 2. This provid es an overal l score of 6 out of 8. Fetus B ( matern al right) cardia c activi ty is confir med at 136 (bpm). Active moveme nt is noted throug hout the course of the exam. The fetus is in cephal ic presen tation . The maximu m vertic al pocket of amniot ic fluid measur es 2.98 cm. 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 Biophy sical profil e is perfor med: tone 2, breath ing 2, moveme nts 2, amniot ic fluid 2. This provid es an overal l score of 8 out of 8. IMPRES RAHUL: 1. Viable dichor ionic twin intrau terine gestat ion in cephal ic/cep halic presen tation . 2. Amniot ic fluid index is within normal limits on both babies . 3. Biophy sical profil e is 6/8 for twin A and 8/8 for twin B. Electr onical ly signed in Floyd cribe by: Doris Beltre MD on:09/15 6:38 PM cc: Page PAGE 1 of [facility] ES 1 INTERFACE Sc Only - [facility] [address] [place] [address], [address], 10/11/2023 19:41:36 10/11/19 24 10/11/2023 US, obste tric, bioph ysica l profi [address] [address] Teleph one [phone] Name: CARLYLE ADKINS [facility] [id number] Exam Date: 2023 Age: 28 Physic marah: MD SARAH, DORIS : 1995 Examin ation: US OB LIMITE D, US OB BIOPHY S PROFIL E WO STRESS , MULTIP LE INDICA TIONS: Antena anoop testin g for survei llance of well-b eing in twin gestat ion. Di-Di Twins. Decrea sed Clinic al age at the time of study is 36.3 based on EDC of 024. FINDIN GS: Ultras ound was perfor med transa bdomin ally. Ultras ound reveal s a viable dichor ionic twin intrau terine gestat ion. Fetus A (mater nal left) cardia c activi ty is confir med at 149 (bpm). Active moveme nt is noted throug hout the course of the exam. The fetus is in cephal ic presen tation . The maximu m vertic al pocket of amniot ic fluid measur es 2.84 cm. The placen ta is locate d anteri or. It is mid positi on. Biophy sical profil e is perfor med: tone 2, breath ing 2, moveme nts 0, amniot ic fluid 2. This provid es an overal l score of 6 out of 8. Fetus B ( matern al right) cardia c activi ty is confir med at 136 (bpm). Active moveme nt is noted throug hout the course of the exam. The fetus is in cephal ic presen tation . The maximu m vertic al pocket of amniot ic fluid measur es 2.98 cm. 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 Biophy sical profil e is perfor med: tone 2, breath ing 2, moveme nts 2, amniot ic fluid 2. This provid es an overal l score of 8 out of 8. IMPRES RAHUL: 1. Viable dichor ionic twin intrau terine gestat ion in cephal ic/cep halic presen tation . 2. Amniot ic fluid index is within normal limits on both babies . 3. Biophy sical profil e is 6/8 for twin A and 8/8 for twin B. Electr onical ly signed in Floyd cribe by: Doris Beltre MD on:09/15 6:38 PM cc: Page PAGE 1 of NUMPAG ES 1 INTERFACE Sc Only - [facility] [address] [place], [address], 10/11/2023 19:41:38 10/11/19 24 10/11/2023 US, obste tric, limit ed [facility] [address] [address] Teleph rbz [phone] Name: CARLYLE ADKINS [facility] [id number] Exam Date: 2023 Age: 28 Physic marah: MD SARAH, DORIS : 1995 Examin ation: US OB LIMITE D, US OB BIOPHY S PROFIL E WO STRESS , MULTIP LE INDICA TIONS: Antena anoop testin g for survei llance of well-b eing in twin gestat ion. Di-Di Twins. Decrea sed [facility] Clinic al age at the time of study is 36.3 based on EDC of 024. FINDIN GS: Ultras ound was perfor med transa bdomin ally. Ultras ound reveal s a viable dichor ionic twin intrau terine gestat ion. Fetus A (mater nal left) cardia c activi ty is confir med at 149 (bpm). Active moveme nt is noted throug hout the course of the exam. The fetus is in cephal ic presen tation . The maximu m vertic al pocket of amniot ic fluid measur es 2.84 cm. The placen ta is locate d anteri or. It is mid positi on. Biophy sical profil e is perfor med: tone 2, breath ing 2, moveme nts 0, amniot ic fluid 2. This provid es an overal l score of 6 out of 8. Fetus B ( matern al right) cardia c activi ty is confir med at 136 (bpm). Active moveme nt is noted throug hout the course of the exam. The fetus is in cephal ic presen tation . The maximu m vertic al pocket of amniot ic fluid measur es 2.98 cm. 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 Biophy sical profil e is perfor med: tone 2, breath ing 2, moveme nts 2, amniot ic fluid 2. This provid es an overal l score of 8 out of 8. IMPRES RAHUL: 1. Viable dichor ionic twin intrau terine gestat ion in cephal ic/cep halic presen tation . 2. Amniot ic fluid index is within normal limits on both babies . 3. Biophy sical profil e is 6/8 for twin A and 8/8 for twin B. Electr onical ly signed in Floyd cribe by: Doris Beltre MD on:09/15 6:38 PM cc: Page PAGE 1 of [facility]AD[facility] VAZQUEZ 1 INTERFACE [facility] Only [facility] [address] [place] [address], [address], 10/11/2023 19:41:40 12/12/19 24 07/13/2023 imagi ng/di agnos tic resul t No observ ation record ed. [email or web address] Not Available 19:11:49 12/12/19 24 08/01/2023 imagi ng/di agnos tic resul t No observ ation record ed. [email or web address] Not Available 19:11:52 Result Notes None recorded. Problems Name Problem SNOMED Code Status Onset Date Resolution Date Notes Provider Name and Address Organization Details Recorded Time Bacteria l vaginosi s 776426387 Active 2023 Lindacarito Art [facility] 4 12:06:52 Acute urinary tract infectio n 371332007 Active 2023 [facility] 4 12:07:18 Gestatio nal proteinu mariaa 79350673 Active 2023 Stacie Lugo [facility] 4 12:45:55 Marginal insertio n of umbilica l cord 88559359 Completed baby b Linda Art [facility] 4 17:50:43 Cardiac complica tion 91008672 Completed Left Echogenic Intercard iac Foci-- Baby A Lindacarito Art [facility] 4 17:51:58 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 Etelvina Chance [facility] 5 09:30:07 Pregnanc y 34535535 Completed 202306/28/2024 Stacie Lugo [facility] 5 17:52:04 Dichorio jyothi diamniot ic twin pregnanc y 517279930 Completed Doris Watkins MD [address] [facility], [place], [address], [facility] 4 17:23:41 Syncope and collapse 254557773 Completed Sees cardiolog y (Dr Anton) 06/23/23 Doris Watkins MD [address] [facility], [place], [address], [facility] 4 17:23:41 Rubella non-immu ne 798759248 Completed Needs MMR ptp Doris Watkins MD [address] [facility], [place], [address], [facility] 4 17:23:41 Chronic hyperten rahul in obstetri c context 6743154 Completed Sees MFM 08/16/23 Doris Watkins MD [address] [facility], [place], [address], [facility] 4 17:23:41 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 810795728 Completed Doris Watkins MD [address] [facility], [place], [address], [facility] 4 17:23:41 Gestatio n period, 20 weeks 73858799 Active 2023 Stacie Lugo [facility] 4 19:43:34 Velament ous insertio n of umbilica l cord 22719155 Completed Baby B-- RESOLVED Linda Doone [facility] 4 17:50:31 Gastroes ophageal reflux disease without esophagi tis 539931915 Active 2023 Stacie Lugo [facility] 4 17:40:55 Headache 39240213 Active 2023 Stacie Lugo [facility] 4 17:45:52 Syncope 013229751 Active 2023 Bhavana Burns [facility] 4 15:17:01 RhD negative 955294020 Active 2023 Linda Art [facility] 4 10:11:37 Increase d frequenc y of urinatio n 405207069 Active 2023 Stacie Lugo [facility] 4 10:35:05 Urinary system finding 315231502 Active 2023 Stacie Lugo [facility] 4 12:53:31 Problem Notes None recorded. Procedures Surgical History Date Name Laterality Status Provider Name and Address Organization Details Recorded Time 06/04/19 Date of Last Pap Smear completed Not Available Health Note 07/15/2023 16:13:42 Appendectomy completed Not Available Health Note 06/14/2023 17:19:07 Imaging Results None recorded. Procedure Notes None recorded. Medical Equipment None Reported. Allergies Allergen ID Allergen Name Allergen Category Reaction Reaction Severity Criticality Documentation Date Start Date Code Code System Note Provider Name and Address Organization Details Recorded Time 251596 Substance with sulfonami de structure and antibacte rial mechanism of action (substanc e) medicatio n hives Not available Not available 03/14/20232019 27124 8003 SNOMED Kelli Bailey [facility] 4 18:12:00 270040 Bactrim medicatio n hives Not available Not available 03/14/20232014 16637 9 RxNorm React ion: Hives ; Comme nt: React ion Date: 17 Dec 2011 ; Not Available [facility] 4 22:27:37 894045 gabapenti n medicatio n hives Not available Not available 03/14/20232019 82579 RxNorm Kelli Bailey [facility] 4 18:12:00 464303 codeine medicatio n hives Not available Not available 03/14/20232021 2670 RxNorm Kelli Bailey [facility] 4 18:12:00 003857 Wellbutri n medicatio n other Not available Not available 03/14/20232018 34533 RxNorm React ion: Hyper tensi on; Comme nt: Annot ation s: SCHMI DT, ASHLE Y 2018 3:15P M WELLB UTRIN 150MG ER; ; Not Available [facility] 22:27:42 020573 Buspar medicatio n lighthead edness Not available Not available 03/14/20232018 64571 0 RxNorm React ion: Synco pe; Not Available [facility] 22:27:48 Medications Name Sig Start Date Stop Date Status Note LastModified by Organization Details LastModified Time fluoxetine 40 mg capsule 10/20 completed Not Available Not Available Not Available ondansetron HCl 4 mg tablet active Not Available Not Available Not Available metronidazo le 500 mg tablet Take 500 mg twice a day by oral route for 7 days. 10/20 completed Not Available Not Available Not Available amoxicillin 875 mg tablet 10/20 completed Not Available Not Available Not Available famotidine 20 mg tablet Take 1 tablet twice a day by oral route. 10/20 completed Not Available Not Available Not Available ferrous sulfate 325 mg (65 mg iron) tablet Take 1 tablet twice a day by oral route for 90 days. 10/20 completed Not Available Not Available Not Available fluoxetine 10 mg capsule Take 10 mg by oral route. 10/20 completed Not Available Not Available Not Available omeprazole 20 mg capsule,del ayed release Take 1 capsule every day by oral route. 10/20 completed Not Available Not Available Not Available ergocalcife rol (vitamin D2) 1,250 mcg (50,000 unit) capsule 10/20 completed Not Available Not Available Not Available ibuprofen 600 mg tablet 10/20 completed Not Available Not Available Not Available norethindro ne (contracept nini) 0.35 mg tablet Take 1 tablet every day by oral route. active Not Available Not Available No t Available fluoxetine 20 mg capsule 10/20 completed Not Available Not Available Not Available sertraline 50 mg tablet active Not Available Not Available Not Available cholecalcif danya (vitamin D3) 10 mcg (400 unit) tablet 10 ugs by oral route. active Not Available Not Available No t Available metoclopram angeli 10 mg tablet Take 1 tablet 4 times a day by oral route. 10/20 completed Not Available Not Available Not Available bupropion HCl XL 150 mg 24 hr tablet, extended release active Not Available Not Available Not Available Tri-Sprinte c (28) 0.18 mg(7)/0.215 mg(7)/0.25 mg(7)-0.035 mg tablet active Not Available Not Available No t Available nitrofurant oin monohydrate /macrocryst als 100 mg capsule Take 1 capsule every 12 hours by oral route for 7 days. 10/20 completed Not Available Not Available Not Available EpiPen 0.3 mg/0.3 mL injection, auto-inject or 0.3 mg every 24 hours by injection route. 2022 active Not Available Not Available Not Avai lable Vitamin 10/20 completed Not Available Not Available Not Available RhoGAM Ultra-Filte red PLUS 1,500 unit (300 mcg) intramuscul ar syringe Inject 1500 units by intramusc ular route. 10/20 completed Not Available Not Available Not Available Fioricet 50 mg-300 mg-40 mg capsule 2023 active Not Available Not Available Not Avai lable Slynd 4 mg (28) tablet TAKE 1 TABLET EVERY DAY BY ORAL Days active Not Available Not Available No t Available Vitals Date Recorded Body height Body mass index (BMI) Body weight Systolic blood pressure Diastolic blood pressure Provider Name and Address Organization Details Last Updated DateTime 10/04/2023 175.26 cm 30.8 kg/m2 31032.09 g 138 mm[Hg] 80 mm[Hg] [facility] 17:50:17 Date Recorded Body height Body mass index (BMI) Body weight Systolic blood pressure Diastolic blood pressure Provider Name and Address Organization Details Last Updated DateTime 10/07/2023 175.26 cm 30.6 kg/m2 45251.06 g 146 mm[Hg] 82 mm[Hg] [facility] 4 16:57:14 Date Recorded Body height Body mass index (BMI) Body weight Systolic blood pressure Diastolic blood pressure Provider Name and Address Organization Details Last Updated DateTime 10/11/2023 175.26 cm 31 kg/m2 42624.4 g 130 mm[Hg] 64 mm[Hg] [facility] 4 17:08:43 Date Recorded Systolic blood pressure Diastolic blood pressure Systolic blood pressure Diastolic blood pressure Systolic blood pressure Diastolic blood pressure Provider Name and Address Organization Details Last Updated DateTime 4 115 mm[Hg] 70 mm[Hg] 112 mm[Hg] 68 mm[Hg] 131 mm[Hg] 86 mm[Hg] [facility] 4 16:23:46 Date Recorded Body height Body mass index (BMI) Body weight Systolic blood pressure Diastolic blood pressure Provider Name and Address Organization Details Last Updated DateTime 10/21/2023 175.26 cm 26.7 kg/m2 54241.14 g 130 mm[Hg] 79 mm[Hg] [facility] 4 14:19:41 Date Recorded Body height Body mass index (BMI) Body weight Systolic blood pressure Diastolic blood pressure Provider Name and Address Organization Details Last Updated DateTime 11/22/2023 175.26 cm 26.4 kg/m2 64122.03 g 122 mm[Hg] 64 mm[Hg] [facility] 4 15:37:47 Social History Question Answer Notes LastModified by Organizat ion Details LastModified Time Do You Have An Advance Directive? No [email or web address] Information not available 09/11/2023 What Is Your Level Of Caffeine Consumption? Occasional [email or web address] Information not available 09/11/2023 How Many Times Per Week Do You Exercise? 1-2 Times Per Week [email or web address] Information not available 09/11/2023 Do You Have A Medical Power Of Stamping Die Maker? No [email or web address] Information not available 09/11/2023 What Was The Date Of Your Most Recent Tobacco Screening? 09/13/2023 [email or web address] Information not available 09/11/2023 What Is Your Relationship Status? [email or web address] Information not available 09/11/2023 Sex: Unknown Functional Status Question Answer Note LastModified by Organizat ion Details LastModified Time Do you use any illicit or recreational drugs? No [email or web address] Information not available 09/11/2023 What is your level of alcohol consumption? None [email or web address] Information not available 09/11/2023 Are you currently employed? 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 Occasional [email or web address] Information not available 09/11/2023 Mental Status None recorded. Family History Relationship Description Onset Age of this Age Resolved Age Notes LastModified by Organization Details LastModified Time Paternal Grandfather Family history of malignant neoplasm [email or web address] Not available 2023 17:19:06 Paternal Grandfather Hypertensive disorder [email or web address] Not available 2023 17:19:06 Paternal Grandfather Diabetes mellitus [email or web address] Not available 2023 16:13:38 Father Diabetes mellitus [email or web address] Not available 2023 17:19:06 Father Hypertensive disorder [email or web address] Not available 2023 17:19:06 Father Hypercholest erolemia [email or web address] Not available 2023 16:13:38 Paternal Grandmother Hypertensive disorder [email or web address] Not available 2023 17:19:06 Paternal Grandmother Diabetes mellitus [email or web address] Not available 2023 16:13:39 Medical History Condition Response Diabetes N Anxiety Disorder Y Bleeding Disorder N Attention-deficit Hyperactivity Disorder N High Blood Pressure N Arthritis N Hyperlipidemia N Cancer N Stroke N Thyroid Problems N Asthma N Depression Y COPD N Anemia N Seizures N Heart Disease N Fibromyalgia N Osteoporosis N Kidney Disease N Gynecological History Statement/Question Response Abnormal Pap N Date of LMP 01/30/2024 Sexually Active? Y STIs/STDs Hep C Screening 03/28/2023 Date of Last Pap Smear 2022 Age at Menarche 13 Current Control Method Obstetrics History GPAL:G 3 P 2 0 2 2 Type Value Multiple Births 1 Full Term 2 Spontaneous 2 Living 2 Total 3 Immunizations Vaccine Type Date Status Note Provider Nam e and Address Organization Details Recorded Time Tdap 09/02/2023 completed Doris Watkins MD [address] [place] [address], [address], [facility] 09/06/2023 17:21:26 Past Encounters Encounter ID Performer Location Encounter Start Date Encounter Closed Date Diagnosis/Indication Diagnosis SNOMED-CT Code Diagnosis ICD10 Code Diagnosis Note [id number] oDris Watkins MD [address] [facility] ([place]) [address] [place] [phone] 06/21/2023 15:03:17 06/21/2023 17:46:49 Dichorionic diamniotic twin 901445836 O30.049 Gestation period, 20 weeks 88148258 Z3A.20 management 278 233140 Z39.1 [id number] Doris Watkins MD [address] ([place]) [address] [place] [phone] 07/22/2023 16:00:31 07/25/2023 08:26:21 Third trimester 25946730 Z34.93 Patient en counter status [id number] Z36.89 Additional diagnosis detail: Encounter for other specified screening Gastroesop hageal reflux disease without esophagitis 935252009 K21.9 Additional diagnosis detail: GERD without esophagiti s Headache [id number] R51.9 Additional diagnosis detail: Recurrent headache [id number] Doris Watkins MD [address] [facility] ([place]) [address] [place] [address] 9 08/05/2023 13:28:22 08/05/2023 15:44:05 Second trimester [id number] Z34.92 [id number] Phillip Anton MD [facility] ([facility] [address] [place] [address] 08/09/2023 14:14:13 08/09/2023 16:00:28 Syncope [id number] R55 [id number] Doris Watkins MD [facility] ([place]) [address] [place] [address] 9 08/19/2023 14:51:26 08/19/2023 17:19:25 Dichorionic diamniotic twin [id number] O30.043 Additional diagnosis detail: Twin , dichorioni c/diamniot ic, third trimester RhD negative 435693044 O 26.899 Z67.91 Additional diagnosis detail: Rh negative, antepartum Third trim rip 39408597 Z34.93 [id number] Doris Watkins MD [facility] ([place]) [address] [place] [address] 9 09/02/2023 15:42:04 09/06/2023 11:54:21 Third trimester 51405019 Z34.93 Requires d iphtheria, tetanus and pertussis vaccination 817213511 Z23 Additional diagnosis detail: Need for Tdap vaccinatio n [id number] Doris Watkins MD [address] [facility] ([place]) [address] [place] [address] 9 09/13/2023 13:08:43 09/13/2023 17:15:13 Third trimester 08079835 Z34.93 Dichorioni c diamniotic twin [id number] O30.043 Additional diagnosis detail: Dichorioni c diamniotic twin in third trimester [id number] Doris Watkins MD [facility] ([place]) [address] [place] [address] 9 09/16/2023 14:45:44 10/11/2023 13:20:30 Third trimester 93516183 Z34.93 [id number] Doris Watkins MD [facility] ([place] [address] [place] [address] 9 09/21/2023 11:45:40 09/21/2023 16:05:58 Gestational proteinuria 85745637 O12.13 Additional diagnosis detail: Gestationa l proteinuri a in third trimester Third trim rip 81159407 Z34.93 [id number] Doris Watkins MD [facility] ([place]) [address] [place] [address] [place] [address] 09/30/2023 10:06:09 09/30/2023 12:03:27 screening 815819783 Z36.85 Third trim rip 20875146 Z34.93 [id number] Tiffany Meraz MD [facility] ([place]) [address] [facility] [address] [place] [address] 09/28/2023 10:19:54 09/28/2023 11:47:34 Third trimester 59967244 Z34.93 [id number] Doris Watkins MD [facility] ([place]) [address] [place] [address] 2 [place] [address] 10/04/2023 15:34:27 10/04/2023 17:53:23 Dichorionic diamniotic twin [id number] O30.043 Additional diagnosis detail: Dichorioni c diamniotic twin in third trimester [id number] Doris Watkins MD [facility] ([place]) [address] [place] [address] 2 [facility] [place] [address] 10/07/2023 13:21:33 10/07/2023 15:09:26 Third trimester 13724863 Z34.93 [id number] Doris Watkins MD [address] [facility] ([place] [address] [place] [address] 2 [facility] [place] [address] 10/11/2023 14:32:58 10/11/2023 17:27:42 Third trimester 04576128 Z34.93 Dichorioni c diamniotic twin [id number] O30.043 Additional diagnosis detail: Dichorioni c diamniotic twin in third trimester [id number] Doris Watkins MD [address] ([place] [address] [place] [address] 2 [facility] [place] [address] 10/21/2023 13:38:44 10/21/2023 15:09:34 Blood pressure taking 93896626 Z01.30 Additional diagnosis detail: Blood pressure check [id number] Doris Watkins MD [address] [facility] ([place] [address] [facility] [address] [place] [address] 11/22/2023 14:31:02 11/22/2023 15:20:54 Uses oral contraception [id number] Z30.41 Additional diagnosis detail: Oral contracept nini use care status 24 3432680 Z39.2 Health Concerns Section Related Observation LastModified by Organization Detai ls LastModified Time None Recorded Concern Status LastModified by Organization Details LastModified Time None Recorded Advance Directives Directive N: Payers Insurance Date Sequence Insurance Name Policy Number Policy Cox Covered Member ID Cox Member ID Guarantor Name 08/01/2023 1 [facility] ([facility]) [id number] Sara Adkins [id number] Sara Adkins 08/03/2024 2 [facility] - EMPLOYEE PLAN (O) [id number] Sara Adkins [id number] Sara Adkins 08/03/2024 1 [facility] - DOS ON OR AFTER 20 (MEDICAID REPLACEMENT - HMO) Sara Adkins [id number] Sara Adkins Notes Date Note Type Note Provider Name and Address Organization Details Recorded Time 10/21/2023 text/html This is a 28-year-old 3, para 2 presents for blood pressure check. She had a vaginal delivery of her twins, Mann and Kemal. She is pumping. She is getting some sleep. She is having no concerning bleeding or pain. She has had some nickel sized clots and does feel this is heavier than her normal period. We discussed this seems consistent with status. She is chronic hypertensive and was induced for non-reassuring testing and decreased movement. Her blood pressures have been non-concerning, though she has limited time to take these. Unfortunately, her significant other and FOB was in a car accident. Thankfully, he is doing well. Her blood pressures in the office are 130/79, 115/70, 112/68, 131/86. The patient denies any preeclamptic symptoms.trae Watkins MD [address] [place] [address], [phone], [facility] 11/03/2023 12:41:41 11/22/2023 text/html Doing well. Gett ing some sleep. Has help at tato. overall feels like mood is doing well. Was started on mood med with PCP-Sertraline. and would like mini pill. Backup and irregular bleeding discussed. No concerns with bleeding. Doris Watkins MD [address] [place] [address], [phone], [facility] 12/11/2023 09:46:33 OBGyn Episode Ob Episode Information Episode Created Date Number of Fetuses Patient Bloodtype Patient rh Status Prepregnancy Weight lbs Domestic Partner Domestic Partner Phone Father Name Adobe Cq Developer Status 06/18/19 24 2 B Negative 163 Mann Gill Castaldo-- [facility] Fetus Data First Name Last Name Admitted to NICU Weight (g) Sex Living Outcome Pediatric Complications Fetus ID Race Codes Race Delivery Type Mann 2480.01 426 M true Full Term 9/9 5072 (Normal Spontaneo us Vaginal Delivery) Kemal 2599.67 73757 M true Full Term 9/9 5073 (Normal Spontaneo us Vaginal Delivery) Problems Problem Notes * IOL 10/16/23 at 8:00PM [facility] DS 8Pre- BMI 24.1 Neg CF/SMA carrierNIPT wnl3rd trimester labs negativeQ 4 week growthsTwice weekly AN testing at 32 wksDeliver 37.0-37.6B is marginal cord insertion, not vasa previa09/10/23 UTI in pregnancyGBS (+,) needs PCN in labor Problem Name Start Date End Date Resolution Snomed Code Not e Dichorionic diamniotic twin [id number] Syncope and collapse 975220050 Sees cardiology (Dr Anton) 06/23/23 Rubella non-immune [id number] N eeds MMR ptp Chronic hypertension in obstetric context 3394430 Sees [facility] 08/16/23 Iron deficiency anemia of 178764143 Velamentous insertion of umbilical cord 46927614 Baby B-- R ESOLVED Cardiac complication 19886249 Left Echogenic Intercardiac Foci-- Baby A Marginal insertion of umbilical cord [id number] baby b Shahbaz Calculation Initial Shahbaz Date Initial Exam Date Initial Exam Provider Initial Ultrasound Date Last Menstrual Period Date Ultra Sound Weeks Gestation 11/05/2023 03/28/2023 03/28/2023 01/29/2023 8 Eighteen To Twenty Week Shahbaz Update Ultra Sound Date Fundal Height At Umbil Quickening Date Ultra Sound Latest Weeks Gestation Final Shahbaz Confirmed By Final Shahbaz Confirmed Date Final Shahbaz Date Ultra Sound Latest Days Gestation 0 11/05/19 24 0 Pre- Flowsheet Flowsheet Date 06/10/2023 Schneider Score Blood Edema Fundus Height Fundus Units Glucose Ketones Leukocytes Nitrite Labor Signs Protein Cervic Dilation Cervic Effacement Cervic Station Type Weight in lbs Pre/Post Dialysis Refused Weight 181.335819152441 BP Diastolic BP Location Tested BP Systolic BP Type 80 120 Fetus Heart Rate Present A 148 B 153 Fetus Movement Comments Xiomyrachel Martinezgers 06/10/2023 12: 29 PMEliaurea had not noticed movement for 24 hours. 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 She worked last night and checked her BP this AM after leaving work. Her blood pressure at home was 141/92 and here today was 120/80. She has provided a BP log and consistently she checks her BP when she has completed her 12 hour shift and has readings of 130's over 60-80's. When she gets up in the afternoon she has BP's ranging from 118-130's over 70-80's. She has noticed some left sided cramping at times. No other concerns. 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 She will graduate in September.Fetus A Sonogram today with cervical length at 3.80 cm. No funneling of the cervix seen. Membranes seen. FHR 148 bpm. Cephalic position. movement seen. Anterior placenta seen.Fetus B Sonogram today. Transverse head maternal lt. FHR 153 bpm. movement seen. Posterior placenta seen.Raznathaly MartinezLipscomb 06/10/2023 12:29 PMReassurance provided. She will continue checking her blood pressures and do the morning BP when she arises to use the bathroom not right after work. She will keep her appointment with Dr. Watkins on 06/20 and Cardiology on 06/22. Discussed movement expectations. Pending PCR and Preeclamptic panel. Flowsheet Date 05/27/2023 Schneider Score Blood Edema Fundus Height Fundus Units Glucose Ketones Leukocytes Nitrite Labor Signs Protein Cervic Dilation Cervic Effacement Cervic Station none neg Type Weight in lbs Pre/Post Dialysis Refused Weight 175.315403371537 BP Diastolic BP Location Tested BP Systolic BP Type 78 140 Fetus Heart Rate Present A 142 B 143 Fetus Movement Comments Doris Tianrien 06/07/2023 08: 41 PMHas had some vaginal pressure and uterine cramping. Cervix is long and closed. Some sludge is noted of the amniotic fluid. 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 The patient was never sent to triage nor was any of the OB service never called. Her blood pressure was said to be 176/120 with a heart rate of 125 she was given 2 L of fluids she notes they did Doppler heart tones. Her systolic blood pressure was elevated today. We will get a protein creatinine ratio and a preeclamptic panel. She is using Zofran 2-3 times per week. 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 She previously saw cardiology and was to return this year for her routine checkup. Given her and symptoms will refer back to cardiology. Anatomical survey next visit. Importance of hydration, protein and may consider need for compression stockings. Flowsheet Date 04/29/2023 Schneider Score Blood Edema Fundus Height Fundus Units Glucose Ketones Leukocytes Nitrite Labor Signs Protein Cervic Dilation Cervic Effacement Cervic Station none neg Type Weight in lbs Pre/Post Dialysis Refused Weight 169.468578522590 BP Diastolic BP Location Tested BP Systolic BP Type 62 110 Fetus Heart Rate Present A sono Present B sono Present Fetus Movement Comments Doris Tianrien 05/17/2023 10: 01 PMPlease obtain on each baby. Is having nausea and would be interested in using Zofran. This was sent to [facility]. She is taking a vitamin and vitamin D. She did have a headache. Precautions given discussed magnesium oxide 400 mg daily as a preventative as well as Tylenol. Importance of hydration and protein in her diet were discussed. OB lab results reviewed. Has NIPT with [facility] due to twin . Flowsheet Date 03/28/2023 Schneider Score Blood Edema Fundus Height Fundus Units Glucose Ketones Leukocytes Nitrite Labor Signs Protein Cervic Dilation Cervic Effacement Cervic Station Type Weight in lbs Pre/Post Dialysis Refused Weight 163.793620440653 BP Diastolic BP Location Tested BP Systolic BP Type 64 128 Fetus Heart Rate Present A sono Present B sono Present Fetus Movement Comments Doris Beltre 05/08/2023 01: 34 PMPatient presents for new OB visit. She is not having nausea or vomiting. She is taking vitamin. She plans to go to [place] and [facility] during this . She is not using caffeine. She is walking for exercise. She was seen at [facility] ED for spotting. She has noted to have twins. Discussed all concerns of obstetrics are more likely in twins including those of labor, growth restrictions etc. Patient is aware she we will get additional growth ultrasounds and testing as a very high likelihood due to her twin gestation. Where the full-term for twins is 38 weeks. There is a higher likelihood she will have a due to malpresentation. 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 EPDS was 8. Counseling and need for medications. We will continue to monitor. She had a Pap 05/04. Reflex Pap was collected. She had the chickenpox immunization. She had 2 COVID vaccines and 1 booster. She denies a history of HSV. She had a flu vaccine. Cystic fibrosis, SMA and NIPT were discussed and patient wishes to have these screenings performed. She is agreeable to a blood transfusion if 1 were deemed medically necessary. She plans to circumcise if male. She plans to breast-feed. She plans to deliver at [facility]. 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 She has had the hepatitis B vaccine series x 3. P/chlamydia were obtained. New OB lab orders were given. New OB teaching was reviewed. Flowsheet Date 06/21/2023 Schneider Score Blood Edema Fundus Height Fundus Units Glucose Ketones Leukocytes Nitrite Labor Signs Protein Cervic Dilation Cervic Effacement Cervic Station none none neg Type Weight in lbs Pre/Post Dialysis Refused Weight 182.944986797166 BP Diastolic BP Location Tested BP Systolic BP Type 82 124 Fetus Heart Rate Present A sono B sono Fetus Movement A Yes B Yes Comments Patient underwent anatomical survey today. Baby A sono is complete with 29.98 %ile growth. Chest appears concave and LEI noted. B is incomplete, growth of 54.1 %ile, velamentous cord insertion insertion noted.. Will refer to maternal- medicine. Has been monitoring blood pressures at home 125- 130/70. She has not had any syncopal episodes. She does have an upcoming appoint with cardiology. She needs an order for a double electric breast pump that reads lactating mother. Discussed diagnosis of possible velamentous cord insertion and how this would modify the remainder of her . Discussed third trimester GTT, CBC, HIV and RPR with antibody screen and RhoGAM at 28 weeks. ---RHEA RUIZ/// Flowsheet Date 07/22/2023 Schneider Score Blood Edema Fundus Height Fundus Units Glucose Ketones Leukocytes Nitrite Labor Signs Protein Cervic Dilation Cervic Effacement Cervic Station none 2+ neg Type Weight in lbs Pre/Post Dialysis Refused Weight 192.982366071805 BP Diastolic BP Location Tested BP Systolic BP Type 82 134 Fetus Heart Rate Present A son B son Fetus Movement Comments Baby is active. Taking prena anoop vitamin and iron. Taking omeprazole babies are active. Taking vitamin and iron. Having reflux. Will send omeprazole. Noting headaches. Will send Fioricet as Tylenol is insufficient. Did discuss Reglan/Benadryl. We are to update her iron panel. She is seeing cardiology and has a Holter monitor she will be seeing them on 08/08. She did have a echo herself that is pending read. Attempt at finalizing anatomy was undertaken today. Baby A has a L EIF and a concave chest with no concern of the heart. Baby B has a question of velamentous cord insertion. She will be seeing maternal- medicine for this. She has cut back on her work duties. We discussed GTT, CBC and third trimester labs with antibody screen and RhoGAM next visit. labor precautions reviewed. --RHEA RUIZ/// Flowsheet Date 08/05/2023 Schneider Score Blood Edema Fundus Height Fundus Units Glucose Ketones Leukocytes Nitrite Labor Signs Protein Cervic Dilation Cervic Effacement Cervic Station none 31 none none neg Type Weight in lbs Pre/Post Dialysis Refused Weight 193.953408846624 BP Diastolic BP Location Tested BP Systolic BP Type 82 144 Fetus Heart Rate Present Fetus Movement A Yes B Yes Comments Patient presents with her fa ther as a follow-up problem visit after to triage visit for abdominal pain. Everything checked. She did get an abdominal binder and is working from home and things seem to have improved. She has no significant contractions, loss of fluid or vaginal bleeding. Babies are moving. She sees Dr. Agustin Hughes to discuss her cardiac workup. She notes some headaches but these are overall better and notes that these are related to stress. Taking in calcium and potassium dietary jules based on her triage workup as well as her oral iron which her hemoglobin was improved. She had a another elevated blood pressure today. Will do a protein creatinine ratio and preeclamptic panel. She has a blood pressure cuff at home and is monitoring. Preeclamptic precautions were given. She has a maternal- medicine appointment with Dr. Nany Dillard on 08/15 to discuss twin and likely velamentous cord insertion of BB be amongst other concerns such as her chronic hypertension and cardiac symptoms etc. She will do her GTT, HIV and RPR at next visit we will also add a magnesium level and CMP with her third trimester labs. She will require RhoGAM as she is Rh-. Overall she is much improved from her time in triage. She seems to have a agreeable disposition on the complexity of the . She seems to have very good support with her family as well as her significant other. ---RHEA RUIZ/// Flowsheet Date 08/09/2023 Schneider Score Blood Edema Fundus Height Fundus Units Glucose Ketones Leukocytes Nitrite Labor Signs Protein Cervic Dilation Cervic Effacement Cervic Station Type Weight in lbs Pre/Post Dialysis Refused Weight 196.892757634036 BP Diastolic BP Location Tested BP Systolic BP Type 62 120 supine 64 120 sitting 70 110 standing Fetus Heart Rate Present Fetus Movement Comments Flowsheet Date 08/19/2023 Schneider Score Blood Edema Fundus Height Fundus Units Glucose Ketones Leukocytes Nitrite Labor Signs Protein Cervic Dilation Cervic Effacement Cervic Station none none neg Type Weight in lbs Pre/Post Dialysis Refused Weight 199.559061027650 BP Diastolic BP Location Tested BP Systolic BP Type 64 110 Fetus Heart Rate Present Fetus Movement A Yes B Yes Comments Babies active. Concern with vulva. Exam performed. Ingrown hair noted. No erythema. No pain. Looking at Sep 2 for IOL? vs scheduled CD after MFM recs. Babies are both vertex and B weighs less than A. Recommending 2 times weekly AN testing. M to do q 4 growth and finish anatomical survey. Plan to deliver 37.0-37.6. Saw cards 08/08 and received [employer] and to return in yr. BP have been normal and no CRUZ at home. Received rhogam today. 3rd tri labs pending. Flowsheet Date 09/02/2023 Schneider Score Blood Edema Fundus Height Fundus Units Glucose Ketones Leukocytes Nitrite Labor Signs Protein Cervic Dilation Cervic Effacement Cervic Station none neg Type Weight in lbs Pre/Post Dialysis Refused Weight 201.570848173629 BP Diastolic BP Location Tested BP Systolic BP Type 68 102 Fetus Heart Rate Present Fetus Movement Comments Baby is active. Taking prena anoop vitamin. Continues to take iron. Discussed Tdap. Is seeing [facility] back for incomplete anatomical survey. Both are cephalic. Cleared for induction of labor. This is scheduled for October 16 per [facility] recommendations of delivery between 37 and 37.6. Has noted some cramping. No loss of fluid or vaginal bleeding. BPs all normal. Will continue to monitor. Labor precautions reviewed.---RHEA RUIZ/// Flowsheet Date 09/13/2023 Schneider Score Blood Edema Fundus Height Fundus Units Glucose Ketones Leukocytes Nitrite Labor Signs Protein Cervic Dilation Cervic Effacement Cervic Station none Cramping neg Type Weight in lbs Pre/Post Dialysis Refused 203.951676112800 BP Diastolic BP Location Tested BP Systolic BP Type 68 136 Fetus Heart Rate Present Fetus Movement A Yes B Yes Comments Babies active. Tdap complete . Taking PNV and 81mg aspirin. BPs normal at home. No log today. Some CTX. Some CRUZ. [facility] appt 09/22. A baby NST 130 baseline FHR. Accels present 15 x 15 no decels. Moderate variability. B baby BST 140 baseline FHR. Accels present 15 X 15. No decels. No CTX. ---RHEA RUIZ/// Flowsheet Date 09/16/2023 Schneider Score Blood Edema Fundus Height Fundus Units Glucose Ketones Leukocytes Nitrite Labor Signs Protein Cervic Dilation Cervic Effacement Cervic Station none trace Type Weight in lbs Pre/Post Dialysis Refused Weight 203.684685495250 BP Diastolic BP Location Tested BP Systolic BP Type 60 132 Fetus Heart Rate Present A sono B sono Fetus Movement A Yes B Yes Comments Babies active. Taking PNV an d 81 mg aspirin. Had a headache, but thinks this is weathre relatd. BPs normal at home. Some cramping and CTX. No LOF/VB. Labor precautions reviewed. BPP 09/21 for both babies cephalic/cephalic. Will see MFM back in follow-up on 09/22 ---RHEA RUIZ/// Flowsheet Date 09/21/2023 Schneider Score Blood Edema Fundus Height Fundus Units Glucose Ketones Leukocytes Nitrite Labor Signs Protein Cervic Dilation Cervic Effacement Cervic Station trace neg Type Weight in lbs Pre/Post Dialysis Refused Weight 202.992134655840 BP Diastolic BP Location Tested BP Systolic BP Type 82 128 Fetus Heart Rate Present A sono B sono Fetus Movement A Yes B Yes Comments Babies active. Taking PNV. H ad some N/V. Took some Reglan and this helped. Had a CRUZ. Took Tylenol and resolved, but returns. BPs 110-130/70-80. FHTs obtained for 4 min via NST. Discsused pre-e workup. Has MFM appt 09/22 ---RHEA RUIZ/// Flowsheet Date 09/28/2023 Schneider Score Blood Edema Fundus Height Fundus Units Glucose Ketones Leukocytes Nitrite Labor Signs Protein Cervic Dilation Cervic Effacement Cervic Station 38 cm none neg Type Weight in lbs Pre/Post Dialysis Refused 206.315204362264 BP Diastolic BP Location Tested BP Systolic BP Type 70 118 Fetus Heart Rate Present A U/S Present B U/S Present Fetus Movement A Yes B Yes Comments di/di twinsMVP 4.8/4.8 cm BP P 09/21 x 2Appointment Tuesday Flowsheet Date 09/30/2023 Schneider Score Blood Edema Fundus Height Fundus Units Glucose Ketones Leukocytes Nitrite Labor Signs Protein Cervic Dilation Cervic Effacement Cervic Station none neg 1cm 90% Type Weight in lbs Pre/Post Dialysis Refused Weight 207.355185120132 BP Diastolic BP Location Tested BP Systolic BP Type 60 110 Fetus Heart Rate Present A NST B NST Fetus Movement Comments Babies active. Having CTX an d pelvic pressure. Saw MFM with reassuring growths.4 # 10 oz and 4# 13oz on 09/22. Both vertex. MFM recs at that visit were different than previous visit. Will keep 37.0 IOL and AN testing at 32 weeks. GBS collected. NST Reactive. A : 130s and B 140 baseline with moderate varaibiloty, no decels. accels present. Mod varaibilty noted. Few CTX noted. Labor prcuations reviewed. Has IOL 10/16. --RHEA RUIZ// Flowsheet Date 10/04/2023 Schneider Score Blood Edema Fundus Height Fundus Units Glucose Ketones Leukocytes Nitrite Labor Signs Protein Cervic Dilation Cervic Effacement Cervic Station none neg Type Weight in lbs Pre/Post Dialysis Refused Weight 208.062623588027 BP Diastolic BP Location Tested BP Systolic BP Type 80 138 Fetus Heart Rate Present A nst B nst Fetus Movement Comments Babies active. GBS +. Needs PCN in labor. CRUZ that does resolve with reglan/benadryl, but returns. Has chornic CRUZ. Some decreased FM? Possible not as robust movements and not really decreased. Discussed kick counts. No log of BP, but BPs 120-130/70s at home. NST A) 135 baseline FHR. moderate variability. Accels present 15 X 15. No decels. NST B 140 baseline FHR moderate variability. Accels present 15 X 15. No decels present. Irregular CTX noted. BPP were both 8/8 with normal MVP. Pre-e precautions, kick counts and labor precautions reviewed. ---RHEA RUIZ/// Flowsheet Date 10/07/2023 Schneider Score Blood Edema Fundus Height Fundus Units Glucose Ketones Leukocytes Nitrite Labor Signs Protein Cervic Dilation Cervic Effacement Cervic Station none trace Type Weight in lbs Pre/Post Dialysis Refused Weight [id number] BP Diastolic BP Location Tested BP Systolic BP Type 82 146 Fetus Heart Rate Present A nst B nst Fetus Movement Comments Babies active. BPs have been mild hypertnesion range at home. CRUZ with benadryl and reglan not as effective. A baby NST reactive 130 baseline. Moderate variability. Accels present 15 X 15. No decels. B baby NST reactive. 140 baseline FHR. Moderate varaibility. Accels present 15 X 15. No decels present. Will send to triage for pre-e workup. Charge nurse at [facility] notified. housecalls nurse physician notified. ---RHEA RUIZ/// Flowsheet Date 10/11/2023 Schneider Score Blood Edema Fundus Height Fundus Units Glucose Ketones Leukocytes Nitrite Labor Signs Protein Cervic Dilation Cervic Effacement Cervic Station none neg 1cm Type Weight in lbs Pre/Post Dialysis Refused Weight 210.847253090618 BP Diastolic BP Location Tested BP Systolic BP Type 64 130 Fetus Heart Rate Present A sono B sono Fetus Movement A No B Yes Comments Baby A decreased FM 07/22 on B PP off for movement. Bab yB BPP 09/21. Patient tearful and concerned. Both are vertexHas been spotting today. N/V have improved. She is still chio.Continues to take pepcid and omeprazole for heartburn. SVE ~2. Difficult to fully assess due to low station of baby A. GBS neg. Dr. Quiroz [facility] contacted and agrees with IOL. Patient sent to [facility]. Charge nurse, resident and instructional interventionist physician notified. ---RHEA RUIZ/// Flowsheet Date 10/21/2023 Schneider Score Blood Edema Fundus Height Fundus Units Glucose Ketones Leukocytes Nitrite Labor Signs Protein Cervic Dilation Cervic Effacement Cervic Station Type Weight in lbs Pre/Post Dialysis Refused Weight 180.205783584206 BP Diastolic BP Location Tested BP Systolic BP Type 79 130 70 115 68 112 86 131 Fetus Heart Rate Present Fetus Movement Comments Flowsheet Date 11/22/2023 Schneider Score Blood Edema Fundus Height Fundus Units Glucose Ketones Leukocytes Nitrite Labor Signs Protein Cervic Dilation Cervic Effacement Cervic Station Type Weight in lbs Pre/Post Dialysis Refused Weight 179.580253381210 BP Diastolic BP Location Tested BP Systolic BP Type 64 122 Fetus Heart Rate Present Fetus Movement Comments Menstrual History Last Menstrual Date Menses Monthly On Bcp Conception Prior Menses Frequency Hcg Plus Date Menarche Onset Age 1201/29/2023 false 4 13 Genetic Screening And Infection History Question Response Note Patient's Age Will Be 35 Yea rs Or Older At Estimated Date of Delivery false Thalassemia (Thai, Slovak, Mediterranean, Or Background): MCV < 80 false Neural Tube Defect (Meningom yelocele, Spina Bifida, Or Anencephaly) false Congenital Heart Defect false Down Syndrome false Akshat-Sachs (eg, Islam, Cajun, Bengali-[place]) f alse Matthew Disease false Sickle Cell Disease Or Trait () false Hemophilia Or Other Blood Disorders false Negative screening Muscular Dystrophy false Negative scre ening Cystic Fibrosis false [place]'s Ch[place] false Intellectual Disability/Autism false If Yes, Was Person Tested For Fragile X? false Other Inherited Genetic Or Chromosomal Disorder false Maternal Metabolic Disorder (eg, Type 1 Diabetes , PKU) false Patient Or Baby's Father Had A Child With Defects Not Listed Above false Recurrent Loss, Or A Stillbirth false Medications (including Suppl ements, Vitamins, Herbs, OTC Drugs), Illicit/Recreational Drugs, Alcohol false If Yes, Agent(s) And Strength/Dosage false Any Other Genetic History false Live With Someone With TB Or Exposed To TB false Patient Or Partner Has History Of Genital Herpes false Rash Or Viral Illness Since Last Menstrual Perio d false History Of STD, Gonorrhea, Chlamydia, HPV, Syphi lis false Other Infection History false Prior GBS-infected child false History of HIV false History of Hepatitis false Hemoglobinopathy Or Carrier false Other Structural Defect false Recent Travel History Outside of Country false Developmental Delay false Autism false Delivery Information Delivery Date Delivery Type Labor Anesthesia Weeks Gestation Incision Type Labor Labor Length Hrs Delivered By Post Complications Tubal Sterilization Discharge Date Comments 4 Induce d Regional-Ep idural 36.4 true Jocelynn Barth MD None false QBL 200, 1000mcg juntrms0g t degree laceratio n, no repair Discharge Information Feeding Method Contraceptive Method Maternal HG B and HCT Levels Breast OCP
== END 2024-08-13 13:56 | disposition home or self-care (01) ==
LOC: CHSIMG 14:01
PROVIDERS: PCP Registered Nurse; Visit Provider Registered Nurse
DX: R10.2 Pelvic and perineal pain (principal)
CPT/HCPCS: 76830; 76856